=== PATIENT | female | born 1995 | race African-American/Black ===

== ENCOUNTER 2016-10-30 13:24 | Emergency (ER) | payer MEDICAID ==
[~2016-10-30] VITALS: Ht 154.9 cm; Wt 51.7 kg
[2016-10-30 13:28] VITALS: BP_SYST 132
[2016-10-30 14:46] VITALS: BP_SYST 100
== END 2016-10-30 14:45 | disposition home or self-care (01) ==
LOC: SED 13:24
DX: R00.2 Palpitations (principal); R06.02 Shortness of breath
CPT/HCPCS: 81025; 93005; 99283

== ENCOUNTER 2019-06-04 20:13 | Emergency (ER) | payer MEDICAID ==
[~2019-06-04] VITALS: Ht 154.9 cm; Wt 49.9 kg
[2019-06-04 20:20] VITALS: BP_SYST 128
[2019-06-04 22:00] LABS: BASOPHILS % (AUTO) 0.4 % (0.0-2.0); EOSINOPHILS # (AUTO) 0.1 K/uL (0.0-0.4); EOSINOPHILS % (AUTO) 1.9 % (0.0-4.0); HEMATOCRIT 40.1 % (36-48); HEMOGLOBIN 13.3 g/dL (12.0-16.0); LYMPHOCYTES # (AUTO) 2.3 K/uL (1.0-5.5); LYMPHOCYTES % (AUTO) 39.7 % (20.5-51.5); MEAN CORPUSCULAR HEMOGLOBIN 30 pg (27-31); MEAN CORPUSCULAR HGB CONC 33 % (32-36); MEAN CORPUSCULAR VOLUME 89 fL (79.0-98.0); MONOCYTES # (AUTO) 0.5 K/uL (0.0-1.0); MONOCYTES % (AUTO) 8.7 % (1.7-9.3); NEUTROPHILS # (AUTO) 2.9 K/uL (1.8-7.7); NEUTROPHILS % (AUTO) 49.3 % (40.0-70.0); PLATELET COUNT (AUTO) 198 K/uL (130-430); RED BLOOD CELL COUNT(AUTO) 4.48 MIL/uL (4.2-6.2); RED CELL DISTRIBUTION WIDTH 13.5 % (9.0-15.0); WHITE BLOOD COUNT (AUTO) 5.9 K/uL (4.8-10.8)
[2019-06-04 22:16] LABS: CALCIUM 9.2 mg/dL (8.4-11.0); CREATININE 0.96 mg/dL (0.55-1.30); POTASSIUM 3.4 mmol/L (3.5-5.1)
[2019-06-04 22:22] LABS: ALBUMIN 3.8 g/dL (3.4-4.8); TOTAL BILIRUBIN 0.3 mg/dL (0.0-1.0)
[2019-06-05 00:26] LABS: PROTHROMBIN TIME 10.3 SECS (9.5-12.5)
[2019-06-05 00:37] LABS: AMYLASE 116 U/L (0-100); LIPASE 165 U/L (73-393)
== END 2019-06-04 23:40 | disposition left against medical advice (07) ==
LOC: SED 20:13
DX: R10.9 Unspecified abdominal pain (principal); Z53.21 Procedure and treatment not carried out due to patient leaving prior to being seen by health care provider
CPT/HCPCS: 36415; 80053; 82150-TC; 83690-TC; 85025; 85610-TC